=== PATIENT | female | born 1930 | race Caucasian/White ===

== ENCOUNTER 2017-11-21 16:26 | Emergency (ER) | payer OTHER, MEDICARE ==
[~2017-11-21] VITALS: Ht 149.9 cm; Wt 49.0 kg
[~2017-11-21 16:26] MED LIST: ALEVE220 M2 PO; ASPIR-LOW81 MG PO; BACITRACIN3.5 GM BOTH EYES; BENADRYL50 MG PO; DIAZEPAM5 MG PO; FLAGYL500 MG PO; HYDROCODON-ACE1 EAC7 PO; KEFLEX500 MG PO; LIDOCAINE700 MG TD; LISINOPRIL10 MG PO; LITE COAT ASPI325 M1 PO; MYRBETRIQ25 MG PO; MYRBETRIQ50 MG PO; NORCO 5/3251 TABLET PO; PEPCID20 MG PO; PRAVACHOL40 MG PO; PRAVASTATIN SOD40 MG PO; PREDNISONE50 MG PO; PROLIA60 MG/1 ML SC; RECLAST5 MG/100 M IV; REFRESH OPTIVE10 ML BOTH EYES; SKELAXIN800 MG PO; SOOTHE LUBRICA1 EACH BOTH EYES; TYLENOL REGULA325 MG PO; VALIUM5 MG PO; VESICARE10 MG PO; VIACTIV CALC1 TABLET PO; VIACTIV SOFT C1 EACH PO; VITAMIN D250000 UNIT PO; WARFARIN SODIUM5 MG PO; ZOFRAN ODT8 MG PO; ZOFRAN4 MG PO
[2017-11-21 17:27] LABS: HEMOGLOBIN 12.7 G/DL (11.9-15.5); MCH 31.4 PG (29.0-34.0); MCHC 32.6 G/DL (30.0-36.0); MCV 96.3 FL (83-99); PLATELET COUNT 233 K/uL (156-360); RBC DIS.WIDTH-CV 13.2 % (11.8-14.6); RBC DIS.WIDTH-SD 46.9 % (39-53); RED BLOOD COUNT 4.05 M/uL (3.80-5.20); WHITE BLOOD COUNT 5.5 K/uL (4.1-10.2)
[2017-11-21 17:38] LABS: CHLORIDE 108 mEq/L (99-109); POTASSIUM 4.6 mEq/L (3.7-5.4); SODIUM 142 mEq/L (136-147)
[2017-11-21 17:40] LABS: GLUCOSE 91 mg/dL (70-99)
[2017-11-21 17:44] LABS: CREATININE 0.9 mg/dL (0.6-1.3); GFR ESTIMATE (CALCULATED) > 59 mL/min/
[2017-11-21 17:45] LABS: UREA NITROGEN (BUN) 15 mg/dL (9-23)
[2017-11-21 17:50] LABS: TROP-I INTERPRETATION NEGATIVE; TROPONIN-I < 0.01 ng/mL (0.0-0.30)
[2017-11-21 19:10] VITALS: BP 173/76
== END 2017-11-21 19:26 | disposition home or self-care (01) ==
LOC: EME 16:26
PROVIDERS: Emergency Medicine
DX: M25.512 Pain in left shoulder (principal); R07.89 Other chest pain; R94.31 Abnormal electrocardiogram [ECG] [EKG]; R91.8 Other nonspecific abnormal finding of lung field; F41.9 Anxiety disorder, unspecified; F32.9 Major depressive disorder, single episode, unspecified; Z87.19 Personal history of other diseases of the digestive system; Z87.442 Personal history of urinary calculi; Z98.890 Other specified postprocedural states; Z88.0 Allergy status to penicillin; Z88.2 Allergy status to sulfonamides; Z88.8 Allergy status to other drugs, medicaments and biological substances
CPT/HCPCS: 71046; 80048; 84484; 85027; 93005; 99281; 99284